=== PATIENT | male | born 1970 | race Caucasian/White ===

== ENCOUNTER 2017-05-05 16:16 | Emergency (ER) | payer OTHER ==
[2017-05-05 16:56] VITALS: BP 136/96
--- NOTE | 2017-05-05 17:57 | ED PDOC ---
Arrival/HPI - General Chief Complaint: Rib Injury Time Seen by Provider: 05/05/17 17:27 Historian: Patient - History of Present Illness Narrative History of Present Illness (Text): 05/05/17 17:54 46yo male with no PMHx present to ED with complaint of painful abscess to his right upper back x 2days. Patient states he had the lump for a year, but it became painful 2days ago. He did not take any medication for the pain. Denies fever, chills, any other complaint. Past Medical History - Provider Review Nursing Documentation Reviewed: Yes - Reproductive Currently Lactating: No - Psychiatric Hx Depression: No Hx Substance Use: No - Anesthesia Hx Anesthesia: No Family/Social History - Physician Review Nursing Documentation Reviewed: Yes Family/Social History: Unknown Family HX Smoking Status: Unknown If Ever Smoked Hx Alcohol Use: No Hx Substance Use: No Allergies/Home Meds Allergies/Adverse Reactions: Allergies No Known Allergies Allergy (Verified 05/05/17 16:56) Review of Systems - Physician Review All systems were reviewed & negative as marked: Yes - Review of Systems Constitutional: Normal Eyes: Normal ENT: Normal Respiratory: Normal Cardiovascular: Normal Gastrointestinal: Normal Genitourinary Male: Normal Musculoskeletal: Normal Skin: Abscess Neurological: Normal Endocrine: Normal Hemo/Lymphatic: Normal Psychiatric: Normal Physical Exam Vital Signs Reviewed: Yes Vital Signs Temp Pulse Resp BP Pulse Ox 05/05/17 18:03 99.0 F 89 18 99 05/05/17 16:49 99.2 F 84 16 136/96 H 98 Temperature: Afebrile Blood Pressure: Normal Pulse: Regular Respiratory Rate: Normal Appearance: Positive for: Well-Appearing, Non-Toxic, Comfortable Pain Distress: None Mental Status: Positive for: Alert and Oriented X 3 - Systems Exam Head: Present: Atraumatic, Normocephalic Pupils: Present: PERRL Extroacular Muscles: Present: EOMI Conjunctiva: Present: Normal Mouth: Present: Moist Mucous Membranes Neck: Present: Normal Range of Motion Respiratory/Chest: Present: Clear to Auscultation, Good Air Exchange. No: Respiratory Distress, Accessory Muscle Use Cardiovascular: Present: Regular Rate and Rhythm, Normal S1, S2. No: Murmurs Abdomen: Present: Normal Bowel Sounds. No: Tenderness, Distention, Peritoneal Signs Back: Present: Normal Inspection Upper Extremity: Present: Normal Inspection. No: Cyanosis, Edema Lower Extremity: Present: Normal Inspection. No: Edema Neurological: Present: GCS=15, CN II-XII Intact, Speech Normal Skin: Present: Warm, Dry, Normal Color, Abscess (Approximately 7.0 x 6.0cm lipoma with overlaying tenderness noted to right sided upper back with induration. No erythema. No warmth.). No: Rashes Psychiatric: Present: Alert, Oriented x 3, Normal Insight, Normal Concentration Medical Decision Making ED Course and Treatment: 05/06/17 01:45 PT was afebrile. I % D was done, but only blood was expressed. Packing was placed. Pt was advised to apply warm compress to the area and to return to ED when soft for drainage. Placed on Doxycyline and bactrim DS. Referred to his PMD. TRT ED for any new symptoms. - Medication Orders Current Medication Orders: Discontinued Medications Doxycycline Hyclate (Doryx) 100 mg PO STAT STA PRN Reason: Protocol Stop: 05/05/17 18:04 Last Admin: 05/05/17 18:19 Dose: 100 mg Tramadol HCl (Ultram) 50 mg PO STAT STA Stop: 05/05/17 18:03 Last Admin: 05/05/17 18:19 Dose: 50 mg MAR Pain Assessment Document 05/05/17 18:19 [email or web address] (Rec: 05/05/17 18:19 [email or web address] [id number]) Pain Reassessment Is this a pain reassessment? No Sleep Is patient sleeping during reassessment? No Presence of Pain Presence of Pain Yes Pain Scale Used Pain Scale Used Numeric Location Left, Right or Bilateral Right Pain Location Body Site Back Description Description Constant Intensity of Pain at present 5 Pain Behavior Facial Grimacing Aggravating Factors Changing Position Alleviating Factors/Management Position Change Techniques Alleviating Factors Medication Trimethoprim/Sulfamethoxazole (Bactrim Ds Tab) 1 tab PO STAT STA PRN Reason: Protocol Stop: 05/05/17 18:04 Last Admin: 05/05/17 18:19 Dose: 1 tab Disposition/Present on Arrival - Present on Arrival Any Indicators Present on Arrival: No History of DVT/PE: No History of Uncontrolled Diabetes: No Urinary Catheter: No History of Decub. Ulcer: No History Surgical Site Infection Following: None - Disposition Have Diagnosis and Disposition been Completed?: Yes Diagnosis: Abscess Disposition: HOME/ ROUTINE Disposition Time: 18:10 Patient Plan: Discharge Condition: STABLE Discharge Instructions (ExitCare): Lipoma (ED), Abscess (ED) Additional Instructions: Follow up with your doctor/Clinic/General surgeon Return to ED for any new symptoms Prescriptions: Doxycycline Hyclate 150 mg PO TID #21 tablet Sulfamethoxazole/Trimethoprim [Bactrim Ds Tablet] 1 each PO BID #14 tablet traMADol [Ultram] 50 mg PO TID #9 tab Referrals: PCP,NO [Primary Care Provider] - Follow up with primary [facility] [Outside] - Follow up with primary Brenden Flores MD [Medical Doctor] - Follow up with primary Forms: [employer] ([place]), WORK NOTE - Incision & Drainage Of Abscess Anesthesia: Lidocaine 1% (15) Prep Used: Betadine Procedure: Incised W/Scalpel Blade#: (11), Drained Pus (blood expressed), Packed W/Gauze
[2017-05-05 18:03] VITALS: PULSE 89; RESP 18; TEMP 99; O2SAT 99
[2017-05-05] MEDS ORDERED: Tmp-Smz 800 mg-160 mg DS Tab PO STA (18:03)
== END 2017-05-05 20:02 | disposition home or self-care (01) ==
LOC: EDSEX → ED 16:16
DX: L02.212 Cutaneous abscess of back [any part, except buttock and flank] (principal)